=== PATIENT | female | born 1990 | race Hispanic/Latino ===

== ENCOUNTER 2018-06-11 21:20 | Emergency (ER) | payer OTHER, SELFPAY ==
[2018-06-11 21:21] VITALS: BP 130/85; PULSE 90; RESP 14; TEMP 37.2; O2SAT 100; BMI 19.2
[2018-06-11] MEDS: Carbamide Peroxide 15 ML Bottle 5 DRP OTIC (23:02)
--- NOTE | 2018-06-12 00:22 | ED.VISSUMM ---
- ER Visit Summary Date of Service: 06/12/18 Chief Complaint: Right ear pain History of Present Illness: The patient is a 27 F who presents with right ear pain that began earlier today. They have tried some jjry-kht-penjpaa drops but it does not seem to be helping. She has no other complaints. Physical Examination: Afebrile vitals unremarkable There is a right-sided cerumen alert Lungs clear Abdomen soft Test Results: Not indicated Emergency Department Course and Treatment: Patient has a very firm hard cerumen impaction on the right. We tried using Debrox and irrigating multiple times. I also used an ear curette and was able to remove a fair amount of wax but there remains a very hard plug. I do not believe this will easily be removed tonight in the emergency department. They are advised to continue to use Debrox at home over the next couple of days to soften this impaction and then follow up with an accounting assistant. They do understand return for new or worsening symptoms. She was given ibuprofen for pain a prescription for the same and discharged home. Treatment Plan: [] Disposition: Discharge Impression: Right-sided cerumen impaction This note was generated with [employer] dictation software. It may contain incorrect words, spelling, and punctuation that were not noted in review of the chart prior to signing ED Disposition - Plan for ED Patient: Chief Complaint: Ear Problem Referrals: Constantine Massey MD [Primary Care Provider] -
--- NOTE | 2018-06-12 00:24 | ED.DEP ---
ED Disposition - Plan for ED Patient: Chief Complaint: Ear Problem Instructions: ED Cerumen Impaction, Home Care Referrals: Constantine Massey MD [Primary Care Provider] - Marlo Floyd MD [STAFF PHYSICIAN] -
== END 2018-06-12 00:30 | disposition home or self-care (01) ==
PROVIDERS: Emergency Provider Emergency Medicine; Family Provider Internal Medicine; PCP Internal Medicine
DX: H61.21 Impacted cerumen, right ear (principal)
CPT/HCPCS: 99283